=== PATIENT | female | born 1960 | race Caucasian/White ===

== ENCOUNTER 2017-01-16 02:51 | Observation (INO) | payer OTHER ==
[~2017-01-16] VITALS: Ht 160 cm; Wt 52.3 kg
[~2017-01-16 02:51] MED LIST: ADVIN25/60 INH; ALBUAER2 INH; AMIT10TA6 PO; ASPEC81 PO; ATV5X PO; BCTROWC EXT; BISA-16 PO; CHOL100010 PO; CLR10 PO; DIVA500T59 PO; DSY/150 PO; FLNIN/ NAE; MULT-513 PO; NTRGSL/4 UT; PANT40TA2 PO; PROM25TA9 PO; RANI300T2 PO; RTL20 PO; ULT50X PO; VALA500T60 PO; VENL75CA73 PO
[2017-01-16 02:58] VITALS: Ht 160 cm; Wt 52.3 kg
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
[2017-01-16] MEDS ORDERED: PRENTAB26 PO (04:50)
[2017-01-16] MEDS ORDERED: VNTHFA/IN INH (04:50)
[2017-01-16 04:57] LABS: HEMATOCRIT 40.6 % (37-47); MEAN CELL VOLUME 92.3 fL (80-100); MEAN CORPUSCULAR HGB CONC 35.7 g/dl (32-36); MEAN PLATELET VOLUME 9.7 fL (7.4-10.4); PLATELET COUNT 289 K/uL (130-400); WHITE BLOOD COUNT 11.91 K/uL (4.8-10.8)
[2017-01-16 05:12] LABS: BUN/CREATININE RATIO 17.1 (10-20); CALCIUM 9.3 mg/dl (8.5-10.1); CREATININE 0.81 mg/dl (0.60-1.20); POTASSIUM 3.3 mmol/L (3.5-5.1)
[2017-01-16 05:22] LABS: THYROID STIMULATING HORMONE 1.32 uIu/ml (0.300-4.500)
[2017-01-16 06:22] LABS: BENZODIAZEPINE, URINE NEG (NEG); COCAINE,URINE NEG (NEG); PHENCYCLIDINE, URINE NEG (NEG)
--- NOTE | 2017-01-16 06:56 | DIAGNOSTIC IMAGING REPORT ---
HEAD CT NONCONTRAST CT DOSE: 537.48 mGy.cm HISTORY: Altered mental status. TECHNIQUE: Multiaxial CT images of the head were performed without the use of intravenous contrast. Automated exposure control was utilized for this study. Comparison: Brain MRI 07/30/2016. Head CT 07/30/2016. Findings: The paranasal sinuses and mastoid air cells are clear. The calvarium and skull base are intact. The ventricles and sulci are within normal limits. There is no mass, hematoma, midline shift, or acute infarct. Right frontotemporal encephalomalacia, unchanged Impression: No significant change compared to the prior study. No acute intracranial abnormality. Electronically signed by: Max Yen M.D. 01/16/2017 6:53 AM Dictated Date/Time: 01/16/2017 6:51 AM
[2017-01-16] MEDS ORDERED: ACETAMINOPHEN 325 MG TAB PO PRN (08:00)
[2017-01-16] MEDS ORDERED: ONDANSETRON INJ 2 MG/ML 2 ML VIAL IV PRN (08:00)
[2017-01-16] MEDS ORDERED: CHOL1CAP85 PO (08:09)
[2017-01-16] MEDS ORDERED: VENL1CAP92 PO (08:09)
[2017-01-16] MEDS ORDERED: ALBUTEROL HFA 8 GM INHALER INH PRN (08:15)
[2017-01-16] MEDS ORDERED: IV FLUIDS COMPLETED PRN (08:15)
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
[2017-01-16] MEDS ORDERED: VENLAFAXINE HCL XR 37.5 MG CAPXR PO SCH (08:54)
[2017-01-16] MEDS ORDERED: PANTOprazole SOD 40 MG TAB PO SCH (08:54)
[2017-01-16] MEDS ORDERED: FLUTICASONE PROPIONATE NA SPR 16 GM BTL NAE SCH (08:54)
[2017-01-16] MEDS ORDERED: ASPIRIN 81 MG ECTAB PO SCH (08:54)
[2017-01-16] MEDS ORDERED: DIVALPROEX SODIUM 500 MG DELAY RELEASE TAB PO SCH (08:54)
[2017-01-16] MEDS ORDERED: NICOTINE 14 MG/24 HR TDSY TD SCH (08:54)
[2017-01-16 09:13] VITALS: BP 106/64; PULSE 89; TEMP 36.4; O2SAT 93
[2017-01-16 10:10] LABS: PROTHROMBIN TIME (PATIENT) 10.8 SECONDS (9.0-12.0)
[2017-01-16] MEDS ORDERED: ENOXAPARIN 40 MG/0.4 ML SYR SQ SCH (14:00)
[2017-01-16 15:17] VITALS: BP 113/79; PULSE 84; TEMP 36.6; O2SAT 96
--- NOTE | 2017-01-16 16:37 | Discharge Instructions ---
Discharge Instructions Date of Service Jan 16, 2017. Admission Reason for Admission: Altered Mental Status Discharge Discharge Diagnosis / Problem: Altered mental status Discharge Goals Goal(s): Learn about illness Activity Recommendations Activity Limitations: resume your previous activity . Instructions / Follow-Up Instructions / Follow-Up You will be contacted regarding a follow up appointment with Family Medicine Dr. Zelaya. Current Hospital Diet Patient's current hospital diet: Regular Diet Discharge Diet Recommended Diet: Regular Diet Pending Studies Studies pending at discharge: no Medical Emergencies . Who to Call and When: Medical Emergencies: If at any time you feel your situation is an emergency, please call 911 immediately. . Non-Emergent Contact Non-Emergency issues call your: Primary Care Provider . . "Provider Documentation" section prepared by Tessie Quinonez. . VTE Core Measure Inpt VTE Proph given/why not?: Enoxaparin (Lovenox)SQ
[2017-01-16 16:47] VITALS: BP 113/79; PULSE 84; TEMP 36.6; O2SAT 96
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
[2017-01-16] MEDS ORDERED: RANITIDINE HCL 150 MG TAB PO SCH (21:00)
[2017-01-16] MEDS ORDERED: AMITRIPTYLINE HCL 10 MG TAB PO SCH (21:00)
[2017-01-16] MEDS ORDERED: TRAZODONE HCL 100 MG TAB PO SCH (22:00)
== END 2017-01-16 17:15 | disposition home or self-care (01) ==
LOC: ENRESERVDT → ENRESERVTM → EDBD 02:51 → C.EDA 02:53 → C.4E 08:01
PROVIDERS: ADMIT Internal Medicine; ATTEND Internal Medicine
DX: R41.82 Altered mental status, unspecified (principal); J45.909 Unspecified asthma, uncomplicated; F43.10 Post-traumatic stress disorder, unspecified; F41.9 Anxiety disorder, unspecified; F31.9 Bipolar disorder, unspecified; K21.9 Gastro-esophageal reflux disease without esophagitis; G35 Multiple sclerosis; F17.200 Nicotine dependence, unspecified, uncomplicated; M19.90 Unspecified osteoarthritis, unspecified site; F41.0 Panic disorder [episodic paroxysmal anxiety]; Z79.82 Long term (current) use of aspirin; Z87.828 Personal history of other (healed) physical injury and trauma; Z79.899 Other long term (current) drug therapy

== ENCOUNTER 2023-11-22 11:08 | Inpatient (IN) ==
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
[2023-11-22] MEDS: SODIUM CHLORIDE 0.9% 1,000 ML IV ONE (11:44)
[2023-11-22 11:49] LABS: iSTAT Creatinine 0.7 mg/dl (0.6-1.3); iSTAT Hemoglobin 12.6 g/dl (12.0-16.0); iSTAT Ionized Calcium 1.12 mmol/l (1.12-1.32); iSTAT Potassium 3.5 mmol/L (3.3-5.0)
--- NOTE | 2023-11-22 11:51 | XRay Report ---
XR chest 1V portable CLINICAL HISTORY: stroke alert TECHNIQUE: Single frontal radiograph of the chest was obtained. Comparison: Comparison is made to chest radiograph 09/21/2018 FINDINGS: No lines and tubes are seen. Calcified aortic knob is seen. The lungs are clear. No evidence of pleur al effusion or pneumothorax. IMPRESSION: No acute chest disease. ACT 112: Negative or not required by law. Electronically signed by: David King M.D. 11/22/2023 11:50 AM
[2023-11-22] MEDS: OPTIRAY 320 125ml IV ONE (11:52)
[2023-11-22 11:54] LABS: Hematocrit (blood only) 35.5 % (37.0-47.0); Hemoglobin 12.2 g/dl (12.0-16.0); Mean Corpuscular Hemoglobin 30.6 pg (25.0-34.0); Mean Corpuscular Hgb Conc 34.4 g/dL (32.0-36.0); Mean Platelet Volume 9.6 fL (9.4-12.4); Platelet Count 327 K/uL (130-400); RDW Coefficient of Variation 13.6 % (11.5-14.5); RDW Standard Deviation 44.3 fL (36.4-46.3); Red Blood Count 3.99 M/uL (4.20-5.40); White Blood Count 5.87 K/ul (4.8-10.8)
[2023-11-22 12:17] LABS: Alanine Aminotransferase 10 U/L (7-52); Albumin Globulin Ratio 1.3 (0.9-2); Albumin Level 4.5 gm/dl (3.4-5.0); Alkaline Phosphatase 96 U/L (34-104); Anion Gap 12 (3-11); Aspartate Aminotransferase 18 U/L (13-39); BUN Creatinine Ratio 28.2 (10-20); Bilirubin,Total 0.6 mg/dl (0.2-1.0); Blood Urea Nitrogen 20 mg/dl (6-23); Calcium 9.2 mg/dl (8.6-10.3); Carbon Dioxide 26 mmol/L (21-32); Chloride 96 mmol/L (98-107); Est GFR (African American) 105.8 ml/min; Est GFR (Non-African American) 91.3 ml/min; Globulin 3.4 gm/dl (2.5-4.0); Glucose 110 mg/dl (70-99(Fasting)); Potassium 3.5 mmol/L (3.5-5.1); Sodium 134 mmol/L (136-145); Total Protein 7.9 gm/dl (6.0-8.3)
--- NOTE | 2023-11-22 12:20 | CT Scan Report ---
UNENHANCED CT OF THE BRAIN; CT ANGIOGRAM OF THE BRAIN; CT ANGIOGRAM OF THE NECK CLINICAL HISTORY: Change in mental status. Neurological deficit. Stroke like symptoms. COMPARISON STUDY: CT of the brain dated 09/21/2018. TECHNIQUE: Unenhanced axial CT scan of the brain is performed. Subsequently, following the IV adminis tration of 112 of [employer] [address], CT angiogram of the head and neck was performed from the aortic arch t o the vertex. Images are reviewed in the axial, sagittal, and coronal planes. 3-D MIPS images are cre ated and assessed. IV contrast was administered without complication. All measurements were calculate d based on NASCET criteria. A dose lowering technique was utilized adhering to the principles of ALA RA. CT DOSE: 1056.27 mGy.cm FINDINGS: Brain parenchyma: There is age-related involutional change noting mild subcortical and periventricula r microangiopathic disease. Foci of right frontal and temporal encephalomalacia are unchanged and con sistent with remote insult. There is no hemorrhage, mass effect, or evidence of acute territorial isc hemia by CT criteria. There is no evidence of enhancing mass lesion on the angiogram phase images. Th e ventricles, sulci, and cisterns are prominent secondary to involutional change. Griffith-white matter d ifferentiation is preserved. No extra-axial fluid collection is seen. Thoracic aorta: There is atherosclerotic calcification of the thoracic aorta. Visualized portions of the thoracic aorta are normal in caliber. The aortic arch demonstrates standard 3-vessel anatomy. Right carotid arterial system: The right common carotid artery is widely patent, as are the right int ernal and external carotid arteries. Minimal plaque is noted in the carotid bulb. Left carotid arterial system: The left common carotid artery is widely patent, as are the left athletic training internship al and external carotid arteries. Mild calcified plaque is seen in the carotid bulb. Vertebral arteries: The vertebral arteries are widely patent bilaterally and codominant. Subclavian arteries: Widely patent bilaterally. Intracranial vasculature: There is moderate atherosclerotic calcification of the cavernous carotid ar teries. The internal carotid arteries are patent at the skull base, as are the anterior and middle ce rebral arteries bilaterally. The vertebrobasilar system and posterior cerebral arteries are widely pa tent. The vertebral arteries are codominant. There is origin of the right posterior cerebral ar josesito. A posterior communicating artery seen on the left. There is no aneurysm, high-grade stenosis, o r focal vessel cut off seen throughout the intracranial circulation. Jugular veins: Patent bilaterally. Dural sinuses: Patent. Lung apices: Emphysematous change is noted. The imaged upper lobe lung parenchyma is otherwise clear. Soft tissues: The visualized pharyngeal soft tissues are normal in appearance noting angiographic pha se technique. The oropharyngeal airway appears widely patent. The salivary and thyroid glands are nor mal in appearance. No cervical lymphadenopathy is seen. There is a tiny metallic foreign body seen in the right temporal scalp on axial image #[address] Skeletal structures: The skeletal structures are osteopenic. The calvarium appears intact. The cervic al spine is maintained noting multilevel spondylosis. There is a chronic-appearing compression deform ity of T4. Orbits: The bony orbits are intact. Orbital contents are normal as visualized. Sinuses and mastoids: The paranasal sinuses are clear. The mastoid air cells are well pneumatized. IMPRESSION: 1. Chronic findings as above with no hemorrhage, mass effect, or evidence of acute territorial ischem ia by CT criteria. 2. Unremarkable CT angiogram of the brain. 3. Unremarkable CT angiogram of the neck. 4. Emphysema. 5. A tiny metallic foreign body is seen within the right temporal scalp. ACT 112: Negative or not required by law. Electronically signed by: Dragan Simeon M.D. 11/22/2023 12:17 PM
[2023-11-22 12:21] LABS: INR 0.9 (0.9-1.1); Partial Thromboplastin Time 29 Seconds (21-31); Prothrombin Time 10.3 Seconds (9.0-12.0)
[2023-11-22] MEDS ORDERED: MAGNESIUM HYDROXIDE SUSP 30 ML UDC PO PRN (13:11)
[2023-11-22] MEDS ORDERED: POLYETHYLENE (MIRALAX) 17 GM PACK PO PRN (13:11)
[2023-11-22] MEDS ORDERED: ONDANSETRON INJ 2 MG/ML 2 ML VIAL IV PRN (13:11)
[2023-11-22] MEDS ORDERED: ALUMINUM/MAGNESIUM SUSP 30 ML UDC PO PRN (13:11)
--- NOTE | 2023-11-22 13:16 | History & Physical Report ---
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 MS[facility]/cognative impairment, prior JERILYN admitted due to concerns of speech stuttering. Patient with convoluted history, hard to redirect--suspicious for hypomanic epidsode given pressured speech, interrupting and tangential thoughts. Denies paranoia, SI/HI, or hallucinations. Reports 3 days of stuttering. ?history of dysphagia. Exam unremarkable with CN II-XII intact, strength 5/5 in BLE/BUE. Anxious, fast speaking. Given history of MS, will order MRI for new speech concerns and reported "TIA like symptoms." Multiple indications for daily ASA. Consult Neuro for further recommendations. Consult psych for medication optimization and eval I have reviewed the advanced practitioner's documentation, and I agree with, and take responsibility for the plan of care I spent a total of 25 minutes coordinating, documenting, and providing care for this patient excluding time spent in the performance of separately billed services. All of the aforementioned completed outside of collaborating with above advanced practitioner for a full treatment plan.
--- NOTE | 2023-11-22 14:00 | Electrocardiogram Report ---
Test Reason : Blood Pressure : / mmHG Vent. Rate : 074 BPM Atrial Rate : 074 BPM P-R Int : 138 ms QRS Dur : 074 ms QT Int : 412 ms P-R-T Axes : 073 015 021 degrees QTc Int : 457 ms Normal sinus rhythm Normal ECG When compared with ECG of 21-SEP-2018 13:48, No significant change was found Confirmed by Te Diego ([id number]) on 11/22/2023 2:00:09 PM Referred By: REFERRED SELF Confirmed By:Te Diego
[2023-11-22 18:32] LABS: Appearance Urine Clear (Clear); Bilirubin Urine Negative (Negative); Blood Urine Negative (Negative); Color Urine Yellow; Glucose Urine UA Negative (Negative); Ketones Urine 3+ (Negative); Leukocyte Esterase Urine Negative (Negative); Nitrite Urine Negative (Negative); Protein Urine Negative (Negative); Specific Gravity Urine > 1.045 (1.000-1.030); Urobilinogen Urine Negative (Negative)
[2023-11-22 19:00] LABS: Amphetamines+Metham, Urine Neg (Neg); Barbiturates, Urine Neg (Neg); Benzodiazepine, Urine Neg (Neg); Cocaine, Urine Neg (Neg); MDMA (Ecstacy), Urine Neg (Neg); Methadone, Urine Neg (Neg); Opiate, Urine Neg (Neg); Phencyclidine, Urine Neg (Neg)
[2023-11-22] MEDS: LORazepam 0.5 MG in SYRINGE 0.25 ML IV STA (19:13)
[2023-11-22 20:05] LABS: Marijuana, Urine Neg (Neg)
[2023-11-22] MEDS: GADOBUTROL 65ML VIAL IV ONE (20:10)
[2023-11-22] MEDS: ASPIRIN 81 MG ECTAB PO SCH (20:27)
[2023-11-22] MEDS: DIVALPROEX DELAY RELEASE 250 MG TABEC PO SCH (20:27)
[2023-11-22] MEDS: PANTOprazole 40 MG TAB PO SCH (20:28)
--- OUTSIDE RECORDS SUMMARY | 2023-11-22 21:36 | External Medical Summary | Summary of Care ---
Author Name Unknown Organization [facility] Address [address] [place] [address] Phone [phone] Care Team Providers Care Deputy Sheriff Civil Division Name Role Phone Tatiana Damon DO Primary Care Provider [phone] Reason for Visit * Reason Onset Date Comments Health Maintenance 10/04/2023 Encounter Details Date Type Department Care Team (Late st Contact Info) Description 10/04/2023 Telephone [facility] [address] [place] [address] Tatiana Damon DO [address] [place] [address] Health Maintenance Allergies Active Allergy Reactions Criticality Noted Date Comments Etodolac 11/07/2019 Hydroxyzine Other (Please comment) 10/31/2016 Tongue swelling Pregabalin Chills/rigors 03/16/2016 "almost " Morphine Rash 03/16/2016 Propoxyphene Rash 09/25/2001 darvocet Hydrocodone-Acetaminophe n Rash 03/16/2016 documented as of this encounter (statuses as of 10/04/2023) Medications Medication Sig Dispensed Refills Start Date End Date Status Nebulizers (NEBULIZER COMPRESSOR) MISCIndications:Moderat e persistent asthma without complication Inhale via nebulizer. Use as directed. 1 Each 1 10/02/2018 Active Montelukast Sodium 10 MG Oral Tablet (Singulair) Take 1 Tablet by mouth in the morning. 90 Tablet 3 01/11/2023 Active Albuterol Sulfate HFA 108 (90 Base) MCG/ACT Inhalation Aerosol SolutionIndications:Mod erate persistent asthma without complication USE 2 PUFFS EVERY 4 HOURS NEEDED FOR WHEEZING. 54 g 1 01/11/2023 Active Vitamin D (Ergocalciferol) 1.25 MG (63341 UT) Oral Capsule (Drisdol)Indications:Vi tamin D deficiency Take 1 Capsule by mouth once a week. 4 Capsule 10 01/11/2023 Active Nebulizer/Tubing/Mouthp iece KitIndications:Moderate persistent asthma without complication Use to nebulize medication twice daily 1 Kit 1 01/25/2023 Active Nitroglycerin 0.4 MG Sublingual Tablet Sublingual (Nitrostat) Place 1 Tablet under the tongue every 5 minutes as needed for Pain, Chest. 0 Active Promethazine-DM 6.25-15 MG/5ML Oral SyrupIndications:Acute cough Take 5 mL by mouth 4 times a day as needed for Cough. 120 mL 1 04/04/2023 Active valACYclovir HCl 500 MG Oral Tablet (Valtrex)Indications:He rpes gingivostomatitis TAKE 1 TABLET BY MOUTH EVERY DAY IN THE MORNING 18 Tablet 1 04/30/2023 Active Divalproex Sodium 250 MG Oral Tablet Delayed Release (Depakote DR) TAKE 1 TABLET BY MOUTH EVERY MORNING AND 1 TABLET BEFORE BEDTIME 60 Tablet 5 05/12/2023 Active Halobetasol Propionate 0.05 % External Ointment (Ultravate)Indications: Pustular psoriasis Apply topically to affected area 2 times a day. Apply to affected fingers 50 g 1 09/22/2023 Active Ondansetron HCl 4 MG Oral Tablet (Zofran) TAKE 1 TABLET BY MOUTH EVERY 8 HOURS NEEDED NAUSEA 30 Tablet 0 09/28/2023 Active Hospital, Clinic, or Other Facility Administered Medication Ordered Dose Route Frequency Start Date End Date Status albuterol sulfate (PROVENTIL) (2.5 MG/3ML) 0.083% inhalation solution 2.5 mgIndications:Moderate persistent asthma without complication 2.5 mg NEBULIZER Q4H PRN 05/31/2017 Active documented as of this encounter (statuses as of 10/04/2023) Active Problems Problem Noted Date Diagnosed Date Food insecurity 05/04/2021 Overview: Per [facility] Protocol Multiple sclerosis 08/24/2019 History of CHF (congestive heart failure) 2017 Tobacco use disorder 09/28/2017 Chronic rhinitis 05/18/2017 History of head injury 02/07/2017 PTSD (post-traumatic stress disorder) 11/22/2016 Vitamin D deficiency 10/08/2016 Moderate persistent asthma without complication 10/07/2016 Mood disorder 08/09/2016 Dyslipidemia, goal LDL below 70 08/09/2016 Gastroesophageal reflux disease without esophagi tis 03/16/2016 documented as of this encounter (statuses as of 10/04/2023) Resolved Problems Problem Noted Date Diagnosed Date Resolved Date Chest injury 03/15/2017 03/16/2017 Nausea and vomiting 03/15/2017 03/16/20 17 Nausea 02/18/2017 03/16/2017 Numbness and tingling 08/09/20162016 Acute chest pain 08/09/2016 03/16/2017 Chronic suppurative otitis media of right ear 05/11/20 16 03/16/2017 Perforation of right tympanic membrane 05/11/2016 03/16/2017 Herpes gingivostomatitis 03/16/2016 Chronic pain syndrome 03/16/20162016 ASCVD (arteriosclerotic card iovascular disease) 03/16/2016 02/07/2017 Head trauma 11/08/2014 02/07/2017 Dyslipidemia, goal LDL below 70 09/15/2009 05/27/2010 Overview: Per Lipid Taxonomy. Angina pectoris 01/10/2009 05/27/2010 Asthma with severity to be determined 01/10/2009 03/16/2016 Overview: ICD-10 update of inactive term GERD 01/10/2009 03/16/2016 OTHER 01/10/2009 03/16/2016 Other specific muscle disorders 01/10/2009 03/16/2016 ANXIETY STATE NOS 01/10/2009 03/16/2016 Major depressive disorder 01/10/2009 Overview: ICD-10 update of inactive term Panic disorder 01/10/2009 03/16/2016 Local superficial swelling 01/10/2009 0 03/16/2016 Migraine 01/10/2009 03/16/2016 Neuralgia and neuritis 01/10/200902/07 Backache 01/10/2009 02/07/2017 Anemia 01/10/2009 03/16/2016 Allergic rhinitis 01/10/2009 03/16/2016 Allergic rhinitis due to ani mal hair and dander 01/10/2009 03/16/2016 Angina pectoris 01/10/2009 02/07/2017 Allergic rhinitis 01/10/2009 03/16/2017 Abdominal pain 01/30/2008 03/16/2016 Premature menopause 01/30/2008 03/16/20 16 Migraine without aura 11/02/20062009 PERCUTANEOUS TRANSLUMINAL CO RONARY ANGIOPLASTY STATUS 11/02/2006 06/30/2007 Tobacco use disorder 03/08/2006 016 EXTRINSIC ASTHMA, UNSPEC 03/08/200612/2008 GENERAL OSTEOARTHROSIS 03/08/200603/16 CHR INF OTIT EXTERNA NEC 03/08/2006 Mixed dyslipidemia 03/08/2006 9 Overview: Per Lipid Taxonomy. Other chest pain 03/08/2006 03/16/2016 Asthma, mild intermittent documented as of this encounter (statuses as of 10/04/2023) Immunizations Name Administration Dates Next Due Pneumococcal Conjugate Vacc, 13 Valent (Prevnar) 03/30/2018 Pneumococcal Polysaccharide PPV23 (Pneumovax) 01/10/2007 Seasonal Influenza, PF, 6 M & above, IM , (FluLaval or Fluzone) 10/27/2021 Seasonal Influenza, Quadriva lent, No Preserve, IM 06/28/2019 06/28/2020 Seasonal Influenza, Split, I IV3, With Preserve, Inj 07/30/2016,07/30/2010,06/27/2009,06/27,08/28/2007 TD - Tetanus/Diptheria (ADULT) 09/10/2001 TDAP (age 10 and older)(Boostrix) 02/09/2019 Zoster Vaccine Recombinant (Shingrix) 10/27/2021 ,11/07/2019 documented as of this encounter Social History Tobacco Use Types Packs/Day Years Used Date Smoking Tobacco: Every Day Cigarettes 0.5 32 Smokeless Tobacco: Never Comments:began at age 23 Alcohol Use Standard Drinks/Week Comments No 0 (1 standard drink = 0.6 oz pur e alcohol) none PHQ-2 Answer Date Recorded PHQ-2 Score 0 11/07/2019 Sex and Gender Information Value Date Recorded Sex Assigned at Female 02/09/2019 11:52 AM EDT Gender Identity Female 02/09/2019 11:52 AM EDT Sexual Orientation Straight 02/09/2019 11 :52 AM EDT Job Start Date Occupation Industry Not on file Not on file Not on file documented as of this encounter Miscellaneous Notes * Telephone Encounter - Kathy Cooper LPN - 10/04/2023 11:45 AM EST Care Gaps Comprehensive Care Outreach Last Office/Telemedicine Visit: 09/22/2023 (in office), 04/21/2022 (telemedicine) Next Office Visit: Visit date not found Hemoglobin AIC Results: Lab Results Component Value Date/Time HEMOGLOBIN A1C - [facility] 5.2 10/07/2016 03:29 PM HEMOGLOBIN A1C - [facility] 6.1 (H) 05/02/2009 01:06 PM Reviewed Health Maintenance below: Health Maintenance Topic Date Due COVID-19 Vaccine (1) Never done Colorectal Cancer Screening Never done *SPIROMETRY ONCE FOR ASTHMA-ADULT Never done DISCUSS TOBACCO CESSATION (REFER TO SMARTSET #3291) 03/16/2017 Mammogram 03/23/2020 Depression Screening 11/07/2020 Influenza Vaccine (FLU shot) (1) 05/27/2023 Ov Colon Pft mamm Care Gap Outreach Action Taken: Unable to reach message not accepting calls documented in this encounter Plan of Treatment Upcoming Encounters Date Type Department Care Team (Late st Contact Info) Description 04/24/2024 3:20 PM EDT [facility] [address] [facility] [place] [address] Faith Lincoln PA-C [address] [place] [address] [place] [id number] Scheduled Procedures Name Priority Associated Diagnoses Date/Ti me ESOPHAGOGASTRODUODENOSCOPY ( EGD), FLEXIBLE, TRANSORAL, DIAGNOSTIC Recall Gastroesophageal reflux disease without esophagitis Health Maintenance Due Date Last Done Comments COVID-19 Vaccine (#1) 02/13/1962 Cologuard 2006 Colonoscopy 2006 Colorectal Cancer Screening 2006 Fecal Occult Blood Test 2006 Sigmoidoscopy 2006 *SPIROMETRY ONCE FOR ASTHMA-ADULT 11/14/2016 DISCUSS TOBACCO CESSATION (REFER TO SMARTSET #6744) 03/16/2017 03/16/2016 (Discussed) Mammogram 03/23/2020 03/23/2019 Depression Screening 11/07/2020 11/07/2019, 03/16/2016 (Discussed) Influenza Vaccine (FLU shot) (#1) 2023 10/27/2021, 06/28/2019, 07/30/2016, Additional history exists Pneumococcal Vaccine: Pediatrics (0 to 5 Years) and At-Risk Patients (6 to 64 Years) (3 - PPSV23 or PCV20) 2026 03/30/2018, 01/10/2007 Lipid Panel 10/27/2026 10/27/2021, 09/26, 03/17/2011, Additional history exists DTaP,Tdap,and Td Vaccines (2 - Td or Tdap) 02/09/2029 02/09/2019, 09/10/2001 Zoster Vaccines Completed 10/27/2021, 11/07/2019 GARDASIL-HPV IMMUNIZATION SERIES Aged Out No longer eligible based on patient's age to complete this topic Hepatitis B Aged Out No longer eligi ble based on patient's age to complete this topic MENINGOCOCCAL (MENACTRA/MENVEO) Aged Out No longer eligible based on patient's age to complete this topic documented as of this encounter Medical Devices Not on filedocumented as of this encounter Care Teams Deputy Sheriff Civil Division Relationship Specialty Start Date End Date Tatiana Damon DO [address] [place] [address] PCP - General Family Medicine 05/17/18 documented as of this encounter
--- OUTSIDE RECORDS SUMMARY | 2023-11-22 21:36 | External Medical Summary | Summary of Care ---
Author Name Unknown Organization [facility] Address [address] [place] [address] Phone [phone] Care Team Providers Care Change Director Name Role Phone Tatiana Damon Primary Care Provider [phone] Reason for Visit * Reason Comments eRx-Medication Refill Encounter Details Date Type Department Care Team (Late st Contact Info) Description 09/27/2023 Refill [facility] [address] [place] [address] Mariola Dash MD [address] [place] [address] Encounter for long-term (current) use of medications* Allergies Active Allergy Reactions Criticality Noted Date Comments Etodolac 11/07/2019 Hydroxyzine Other (Please comment) 10/31/2016 Tongue swelling Pregabalin Chills/rigors 03/16/2016 "almost " Morphine Rash 03/16/2016 Propoxyphene Rash 09/25/2001 darvocet Hydrocodone-Acetaminophe n Rash 03/16/2016 documented as of this encounter (statuses as of 09/28/2023) Medications Medication Sig Dispensed Refills Start Date End Date Status Nebulizers (NEBULIZER COMPRESSOR) MISCIndications:Moder ate persistent asthma without complication Inhale via nebulizer. Use as directed. 1 Each 1 9 Active Montelukast Sodium 10 MG Oral Tablet (Singulair) Take 1 Tablet by mouth in the morning. 90 Tablet 3 3 Active Albuterol Sulfate HFA 108 (90 Base) MCG/ACT Inhalation Aerosol SolutionIndications:M oderate persistent asthma without complication USE 2 PUFFS EVERY 4 HOURS NEEDED FOR WHEEZING. 54 g 1 3 Active Vitamin D (Ergocalciferol) 1.25 MG (48818 UT) Oral Capsule (Drisdol)Indications: Vitamin D deficiency Take 1 Capsule by mouth once a week. 4 Capsule 10 3 Active Nebulizer/Tubing/Mout hpiece KitIndications:Modera te persistent asthma without complication Use to nebulize medication twice daily 1 Kit 1 3 Active Nitroglycerin 0.4 MG Sublingual Tablet Sublingual (Nitrostat) Place 1 Tablet under the tongue every 5 minutes as needed for Pain, Chest. 0 Active Promethazine-DM 6.25-15 MG/5ML Oral SyrupIndications:Acut e cough Take 5 mL by mouth 4 times a day as needed for Cough. 120 mL 1 3 Active valACYclovir HCl 500 MG Oral Tablet (Valtrex)Indications: Herpes gingivostomatitis TAKE 1 TABLET BY MOUTH EVERY DAY IN THE MORNING 18 Tablet 1 3 Active Divalproex Sodium 250 MG Oral Tablet Delayed Release (Depakote DR) TAKE 1 TABLET BY MOUTH EVERY MORNING AND 1 TABLET BEFORE BEDTIME 60 Tablet 5 3 Active Halobetasol Propionate 0.05 % External Ointment (Ultravate)Indication s:Pustular psoriasis Apply topically to affected area 2 times a day. Apply to affected fingers 50 g 1 3 Active Sulfamethoxazole-Trim ethoprim 800-160 MG Oral Tablet (Bactrim DS)Indications:Cellul itis of finger of left hand,Acute nasopharyngitis Take 1 Tablet by mouth in the morning and 1 Tablet before bedtime. Do all this for 10 days. Until gone.. 20 Tablet 0 3 10/02/19 24 Active Ondansetron HCl 4 MG Oral Tablet (Zofran) TAKE 1 TABLET BY MOUTH EVERY 8 HOURS NEEDED NAUSEA 30 Tablet 0 4 Active Ondansetron HCl 4 MG Oral Tablet Take 1 Tablet by mouth every 8 hours as needed for Nausea. 30 Tablet 0 3 09/28/19 24 Discontinued Hospital, Clinic, or Other Facility Administered Medication Ordered Dose Route Frequency Start Date End Date Status albuterol sulfate (PROVENTIL) (2.5 MG/3ML) 0.083% inhalation solution 2.5 mgIndications:Moderate persistent asthma without complication 2.5 mg NEBULIZER Q4H PRN 05/31/2017 Active documented as of this encounter (statuses as of 09/28/2023) Active Problems Problem Noted Date Diagnosed Date Food insecurity 05/04/2021 Overview: Per [facility] Protocol Multiple sclerosis 08/24/2019 History of CHF (congestive heart failure) 2017 Tobacco use disorder 09/28/2017 Chronic rhinitis 05/18/2017 History of head injury 02/07/2017 PTSD (post-traumatic stress disorder) 11/22/2016 Vitamin D deficiency 10/08/2016 Moderate persistent asthma without complication 10/07/2016 Mood disorder 08/09/2016 Dyslipidemia, goal LDL below 70 08/09/2016 Gastroesophageal reflux disease without esophagi tis 03/16/2016 documented as of this encounter (statuses as of 09/28/2023) Resolved Problems Problem Noted Date Diagnosed Date [...] INF OTIT EXTERNA NEC 03/08/2006 Mixed dyslipidemia 03/08/200609/15/ 9 Overview: Per Lipid Taxonomy. Other chest pain 03/08/2006 03/16/2016 Asthma, mild intermittent documented as of this encounter (statuses as of 09/28/2023) Immunizations Name Administration Dates Next Due Pneumococcal [...] encounter Miscellaneous Notes * Telephone Encounter - Miguel Whipple [facility] - 09/28/2023 3:31 PM ESTSigned Prescriptions: Disp Refills Ondansetron HCl 4 MG Oral Tablet (Zofran) 30 Tab*0 Sig: TAKE 1 TABLET BY MOUTH EVERY 8 HOURS NEEDED NAUSEAAuthorizing Provider: Miguelito DASH User: MIGUEL FARIAS documented in this encounter Plan of Treatment Upcoming Encounters Date Type Department Care Team (Late st Contact Info) Description 04/24/2024 3:20 PM EDT Office Visit Dermatology[address] [place] [address] Faith Lincoln PA-C [address] [place] [address] [place] [address] Scheduled Orders Name Type Priority Associated Diagnoses Orde r Schedule MAGNESIUM Lab Routine Encounter for long-term (current) use of medications Expected: 09/28/2023 (Approximate), Expires: 09/28/2024 Scheduled Procedures Name Priority Associated Diagnoses Date/Ti me ESOPHAGOGASTRODUODENOSCOPY ( EGD), FLEXIBLE, TRANSORAL, DIAGNOSTIC Recall Gastroesophageal reflux disease without esophagitis Health Maintenance Due Date Last Done Comments COVID-19 Vaccine (#1) 02/13/1962 Cologuard 2006 Colonoscopy 2006 Colorectal Cancer Screening 2006 Fecal Occult Blood Test 2006 Sigmoidoscopy 2006 *SPIROMETRY ONCE FOR ASTHMA-ADULT 11/14/2016 DISCUSS TOBACCO CESSATION (REFER TO SMARTSET #3291) 03/16/2017 03/16/2016 (Discussed) Mammogram 03/23/2020 03/23/2019 Depression [...] Not on filedocumented as of this encounter Visit Diagnoses Diagnosis Encounter for long-term (current) use of medications- Primary Encounter for long-term (current) use of other medications documented in this encounter Care Teams Change Director Relationship Specialty Start Date End Date Tatiana Damon DO [address] [place] [phone] PCP - General Family Medicine 05/17/18 documented as of this encounter
--- OUTSIDE RECORDS SUMMARY | 2023-11-22 21:36 | External Medical Summary | Summary of Care ---
Author Name Unknown Organization [facility] Address [address] [place] [address] Phone [phone] Care Team Providers Care Property And Casualty Insurance Agent Name Role Phone LarrydestineeTatiana DO Primary Care Provider [phone] Encounter Details Date Type Department Care Team (Late st Contact Info) Description 2023 Population Health External Data Unspecified Department Allergies Active Allergy Reactions Criticality Noted Date Comments Etodolac 11/07/2019 Hydroxyzine Other (Please comment) 10/31/2016 Tongue swelling Pregabalin Chills/rigors 03/16/2016 "almost " Morphine Rash 03/16/2016 Propoxyphene Rash 09/25/2001 darvocet Hydrocodone-Acetaminophe n Rash 03/16/2016 documented as of this encounter (statuses as of 2023) Medications Medication Sig Dispensed Refills Start Date End Date Status Nebulizers (NEBULIZER COMPRESSOR) MISCIndications:Moderat e persistent asthma without complication Inhale via nebulizer. Use as directed. 1 Each 1 10/02/2018 Active Montelukast Sodium 10 MG Oral Tablet (Singulair) Take 1 Tablet by mouth in the morning. 90 Tablet 3 01/11/2023 Active Ondansetron HCl 4 MG Oral Tablet Take 1 Tablet by mouth every 8 hours as needed for Nausea. 30 Tablet 0 01/11/2023 Active Albuterol Sulfate HFA 108 (90 Base) MCG/ACT Inhalation Aerosol SolutionIndications:Mod erate persistent asthma without complication USE 2 PUFFS EVERY 4 HOURS NEEDED FOR WHEEZING. 54 g 1 01/11/2023 Active Vitamin D (Ergocalciferol) 1.25 MG (98356 UT) Oral Capsule (Drisdol)Indications:Vi tamin D deficiency [...] BEFORE BEDTIME 60 Tablet 5 05/12/2023 Active Hospital, Clinic, or Other Facility Administered Medication Ordered Dose Route Frequency Start Date End Date Status albuterol sulfate (PROVENTIL) (2.5 MG/3ML) 0.083% inhalation solution 2.5 mgIndications:Moderate persistent asthma without complication 2.5 mg NEBULIZER Q4H PRN 05/31/2017 Active documented as of this encounter (statuses as of 2023) Active Problems Problem Noted Date Diagnosed Date Food insecurity 05/04/2021 Overview: Per [facility] Protocol Multiple sclerosis 08/24/2019 History of CHF (congestive heart failure) 2017 Tobacco use disorder 09/28/2017 Chronic rhinitis 05/18/2017 History of head injury 02/07/2017 PTSD (post-traumatic stress disorder) 11/22/2016 Vitamin D deficiency 10/08/2016 Moderate persistent asthma without complication 10/07/2016 Mood disorder 08/09/2016 Dyslipidemia, goal LDL below 70 08/09/2016 Gastroesophageal reflux disease without esophagi tis 03/16/2016 documented as of this encounter (statuses as of 2023) Resolved Problems Problem Noted Date Diagnosed Date [...] as of this encounter (statuses as of 2023) Immunizations Name Administration Dates Next Due Pneumococcal Conjugate Vacc, 13 Valent (Prevnar) 03/30/2018 Pneumococcal Polysaccharide PPV23 (Pneumovax) 01/10/2007 SEASONAL INFLUENZA, PF, 6 M & Above, IM , (FLULAVAL or FLUZONE) 10/27/2021 Seasonal Influenza, Quadriva lent, No Preserve, [...] on file documented as of this encounter Plan of Treatment Scheduled Procedures Name Priority Associated Diagnoses Date/Ti [...] filedocumented as of this encounter Care Teams Property And Casualty Insurance Agent Relationship Specialty Start Date End Date Tatiana Damon DO [address] [place] [address] PCP - General Family Medicine 05/17/18 documented as of this encounter
--- OUTSIDE RECORDS SUMMARY | 2023-11-22 21:36 | External Medical Summary | Summary of Care ---
Author Name Unknown Organization [facility] Address [address] [place] [address] Phone [phone] Care Team Providers Care Event Host Name Role Phone Tatiana Damon Primary Care Provider + [phone] Reason for Referral * Evaluate & Treat - Unlimited Visits (Within 30 days (routine)) - Authorized Specialty Diagnoses / Procedures Referred By Ermelinda velazquez Referred To Contact Dermatology Diagnoses Pustular psoriasis Deb Pierce PA-C [address] [place] [address] Referral ID Status Reason Start Date Expiration Date Visits Requested Visits Authorized [id number] Authorized Specialty Services Required 3 [phone] Question Answer Referral Priority Within 30 days (routine) Where should this appointment be scheduled? [facility] Are you referring the patient for Mohs Surgery and have a current positive skin cancer biopsy result? No What is the reason for the patient referral? Rash/Skin Check/Eval of Lesion or Mole Reason for Visit * Reason Comments Acute Pt states that her h ands are really chapped and skin is peeling off / pt said she is also congested and cough Encounter Details Date Type Department Care Team (Latest Contact Info) Description 09/22/2023 2:20 PM EST Office Visit [facility] [address] [place] [facility] [place] [address] Deb Pierce PA-C [address], [place] [id number] Pustular psoriasis*; Other cough; Tobacco use; Cellulitis of finger of left hand; Acute nasopharyngitis Allergies Active Allergy Reactions Criticality Noted Date Comments Etodolac 11/07/2019 Hydroxyzine Other (Please comment) 10/31/2016 Tongue swelling Pregabalin Chills/rigors 03/16/2016 "almost " Morphine Rash 03/16/2016 Propoxyphene Rash 09/25/2001 darvocet Hydrocodone-Acetaminophe n Rash 03/16/2016 documented as of this encounter (statuses as of 09/22/2023) Medications Medication Sig Dispensed Refills Start Date [...] 01/11/2023 Active Vitamin D (Ergocalciferol) 1.25 MG (64556 UT) Oral Capsule (Drisdol)Indications:Vi tamin D deficiency [...] affected fingers 50 g 1 09/22/2023 Active Sulfamethoxazole-Trimet hoprim 800-160 MG Oral Tablet (Bactrim DS)Indications:Cellulit is of finger of left hand,Acute nasopharyngitis Take 1 Tablet by mouth in the morning and 1 Tablet before bedtime. Do all this for 10 days. Until gone.. 20 Tablet 0 09/22/2023 Active Hospital, Clinic, or Other Facility Administered Medication Ordered Dose Route Frequency Start Date End Date Status albuterol sulfate (PROVENTIL) (2.5 MG/3ML) 0.083% inhalation solution 2.5 mgIndications:Moderate persistent asthma without complication 2.5 mg NEBULIZER Q4H PRN 05/31/2017 Acti ve methylPREDNISolone sodium succ (SOLU-Medrol) inj 125 mgIndications:Pustular psoriasis,Other cough,Acute nasopharyngitis 125 mg IM ONCE 09/22/2023 09/22/2023 Ended documented as of this encounter (statuses as of 09/22/2023) Active Problems Problem Noted Date Diagnosed Date Food insecurity 05/04/2021 Overview: Per [facility] Protocol Multiple sclerosis 08/24/2019 History of CHF (congestive heart failure) 2017 Tobacco use disorder 09/28/2017 Chronic rhinitis 05/18/2017 History of head injury 02/07/2017 PTSD (post-traumatic stress disorder) 11/22/2016 Vitamin D deficiency 10/08/2016 Moderate persistent asthma without complication 10/07/2016 Mood disorder 08/09/2016 Dyslipidemia, goal LDL below 70 08/09/2016 Gastroesophageal reflux disease without esophagi tis 03/16/2016 documented as of this encounter (statuses as of 09/22/2023) Resolved Problems Problem Noted Date Diagnosed Date [...] as of this encounter (statuses as of 09/22/2023) Immunizations Name Administration Dates Next Due Pneumococcal [...] Day Cigarettes 0.5 32 Smokeless Tobacco: Never Tobacco Cessation:Ready to Q uit: Not Asked; Counseling Given: Not Answered Comments:began at age 23 Alcohol Use Standard [...] on file documented as of this encounter Last Filed Vital Signs Vital Sign Reading Time Taken Comments Blood Pressure 98/62 09/22/2023 2:07 PM EST Pulse 76 09/22/2023 2:07 PM EST Temperature 35.6 C (96 F) 09/22/2023 2:07 PM EST Respiratory Rate 16 09/22/2023 2:07 PM EST Oxygen Saturation 98% 09/22/2023 2:07 PM EST Inhaled Oxygen Concentration - - Weight 52.2 kg (115 lb) 09/22/2023 2:07 PM EST Height 160 cm (5' 3") 09/22/2023 2:07 PM EST Body Mass Index 20.37 09/22/2023 2:07 PM EST documented in this encounter Progress Notes * Sue Ovalle CCMA - 09/22/2023 2:27 PM EST Pre-Administration Time Out Procedure Performed: Yes Patient Identified (Ask Name/Date of ): Yes Does the patient have a fever greater than 101 degrees today? No Patient allergic to latex? No Has the patient ever fainted after receiving an injection? No VFC Stock: No Injection(s) verified: Yes, Injection Name: SOLU-MEDROL Verified Side and Site: Yes Verified Shot(s) with Parent(s)/Patient: Yes * Deb Pierce PA-C - 09/22/2023 2:10 PM EST Images from the original note were not included. History of Present Illness Jael Jarvis is a 63 year old female that presents for Acute (Pt states that her hands are reallychapped and skin is peeling off / pt said she is also congested and cough/) Here for acute visit She has been cleaning a lot Newman wear gloves Has had issue with her skin on her hands for some time now The skin peels and sloughs off Chapped Also has uri symptoms. She was to walk in clinic 8 months ago Was on 2 abx Then on cough meds Does smoke Cannot get rid of it Does feel sick Grandkids had rsv fairly recently Physical Exam Vitals: 09/22/23 1407 Temp: 35.6 C (96 F) Pulse: 76 Resp: 16 SpO2: 98% BP: 98/62 BMI: 20.38 BP Readings from Last 3 Encounters: 09/22/23 98/62 04/04/23 114/70 01/25/23 120/60 Wt Readings from Last 3 Encounters: 09/22/23 52.2 kg (115 lb) 04/04/23 48.2 kg (106 lb 3.2 oz) 01/25/23 47.7 kg (105 lb 3.2 oz) BMI Readings from Last 3 Encounters: 09/22/23 20.37 kg/m 04/04/23 18.81 kg/m 01/25/23 18.64 kg/m Ht Readings from Last 3 Encounters: 09/22/23 1.6 m (5' 3") 04/04/23 1.6 m (5' 3") 01/07/23 1.6 m (5' 3") General: alert, healthy, and no distress Head: Normocephalic, No masses, lesions, tenderness or abnormalities Eye Exam: PERRLA, extraocular movements intact, conjunctiva are pink and non- injected, sclera clear Ears: External ears normal, Canals clear, TM's Normal Nose: no purulent discharge, mucosal edema, mucosal erythema Oropharynx: no exudate, no erythema, lips, buccal mucosa, and tongue normal, mucous membranes are moist, and post nasal drip Neck: supple, no adenopathy, no bruits, thyroid normal size, non-tender, without nodularity Heart: regular rate & rhythm, no murmur, no gallops, S-1 normal, and S-2 normal Lungs: chest symmetric with normal AP diameter, no chest deformities noted, no chest wall tenderness, lungs clear to auscultation Extremities: less than 2 second capillary refill, no joint deformities, effusion, or inflammation Skin: skin color, texture, turgor are normal, several fingertips with psoriasis and peeling, her L index finger has an infection - no purulent drainage but is erythematous and edematous, localized todi[p around nail bed Assessment and Plan Pustular psoriasis (Primary) - Halobetasol Propionate 0.05 % External Ointment (Ultravate); Apply topically to affected area 2 times a day. Apply to affected fingers - methylPREDNISolone sodium succ (SOLU-Medrol) inj 125 mg - DERMATOLOGY REFERRAL OP Other cough - methylPREDNISolone sodium succ (SOLU-Medrol) inj 125 mg Tobacco use - XR CHEST 2 VIEWS; Future; Expected date: 09/22/2023 Cellulitis of finger of left hand - Sulfamethoxazole-Trimethoprim 800-160 MG Oral Tablet (Bactrim DS); Take 1 Tablet by mouth in the morning and 1 Tablet before bedtime. Do all this for 10 days. Until gone.. Acute nasopharyngitis - methylPREDNISolone sodium succ (SOLU-Medrol) inj 125 mg - Sulfamethoxazole-Trimethoprim 800-160 MG Oral Tablet (Bactrim DS); Take 1 Tablet by mouth in the morning and 1 Tablet before bedtime. Do all this for 10 days. Until gone.. comfort care measures discussed saline nasal spray with bulb syringe plenty of fluids Tylenol per dosing recommendations for low grade fever humidifier Rev Dr Pranav dixon notes from 2015 X 2 Rx same ointment May need ilk from derm Wrap-Up Time: I spent a total of 10-19 minutes (exact time 17 mins) on the date of service in preparation, delivery, and documentation of the care provided to Jael Jarvis excluding any time spent in the performance of separately billed services. Deb Pierce PA-C 09/22/2023 2:20 PM documented in this encounter Nursing Notes * Sue Ovalle CCMA - 09/22/2023 2:07 PM EST Jael Jarvis is a 63 year old female who presents today for Chief Complaint Patient presents with Acute Pt states that her hands are really chapped and skin is peeling off / pt said she is also congestedand cough documented in this encounter Plan of Treatment Upcoming Encounters Date Type Department Care Team (Late st Contact Info) Description 04/24/2024 3:20 PM EDT Office [place] [place] [address] Faith Lincoln PA-C [address] [place] [address] [place] [phone] Scheduled Orders Name Type Priority Associated Diagnoses Orde r Schedule XR CHEST 2 VIEWS Medical Imaging Routine Tobacco use Expected: 09/22/2023, Expires: 10/23/2024 Scheduled Procedures Name Priority Associated Diagnoses Date/Ti me ESOPHAGOGASTRODUODENOSCOPY ( EGD), FLEXIBLE, TRANSORAL, DIAGNOSTIC Recall Gastroesophageal reflux disease without esophagitis Scheduled Referrals Name Type Priority Associated Diagnoses Orde r Schedule DERMATOLOGY REFERRAL OP Referral Within 30 days (routine) Pustular psoriasis Ordered: 09/22/2023 Health Maintenance Due Date Last Done Comments COVID-19 Vaccine (#1) 02/13/1961 Cologuard 2006 Colonoscopy 2006 Colorectal Cancer Screening 2006 Fecal Occult Blood Test 2006 Sigmoidoscopy 2006 *SPIROMETRY ONCE FOR ASTHMA-ADULT 11/14/2016 DISCUSS TOBACCO CESSATION (REFER TO SMARTSET #8810) 03/16/2017 03/16/2016 (Discussed) Mammogram 03/23/2020 03/23/2019 Depression [...] as of this encounter Visit Diagnoses Diagnosis Pustular psoriasis- Primary Other psoriasis Other cough Tobacco use Tobacco use disorder Cellulitis of finger of left hand Cellulitis and abscess of finger, unspecified Acute nasopharyngitis Acute nasopharyngitis (common cold) documented in this encounter Administered Medications Inactive Administered Medications - up to 3 most recent administrations Medication Order MAR Action Action Date Dose Rate Site methylPREDNISolone sodium succ (SOLU-Medrol) inj 125 mg 125 mg, Intramuscular, ONCE, On Alyse 09/22/23 at 1500, For 1 dose Given 09/22/2023 2:26 PM EST 125 mg Dorsogluteal Right documented in this encounter Care Teams Event Host Relationship Specialty Start Date End Date Tatiana Damon DO [address] [place] [address] PCP - General Family Medicine 05/17/18 documented as of this encounter
[2023-11-22] MEDS: ACETAMINOPHEN 325 MG TAB PO PRN (22:30)
[2023-11-23] MEDS ORDERED: HALOPERIDOL LACTATE 5 MG/ML 1 ML VIAL IM PRN (03:09)
[2023-11-23] MEDS: HALOPERIDOL LACTATE 5 MG/ML 1 ML VIAL IM STA ×2 (03:15→03:19)
--- NOTE | 2023-11-23 07:44 | Magnetic Resonance Report ---
MRI OF THE BRAIN WITHOUT AND WITH IV CONTRAST CLINICAL HISTORY: MS/stroke like symptoms. Left-sided headache. Confusion. COMPARISON STUDY: MRI of the brain July 30, 2016. Since head CT and CTA of the head performed ear lier today. TECHNIQUE: Utilizing a 1.5 Tahira magnet and dedicated coil, multiplanar, multiecho imaging of the br ain was performed pre and postcontrast administration. IV administration of 5 mL of Gadavist contras t was uneventful. The study was performed as per the MS protocol. FINDINGS: There are no foci of restricted diffusion to suggest acute infarct. No acute intracranial h emorrhage, midline shift or mass effect is present. Right temporal lobe encephalomalacia is unchanged since MRI of July 30, 2016. Ventricular system is stable. Basal cisterns are patent. There are no extra-axial collections. Mild atrophy is noted. There is no intracranial mass or pathologic enhancem ent. Periventricular T2 hyperintense foci are again noted. Foci adjacent to the atrium of the left la teral ventricle have mildly increased since previous MRI. Otherwise, the appearance of the brain is u nchanged. Vertebral signal is normal. There is no evidence for sinusitis. There is no mastoid fluid. IMPRESSION: 1. No acute intracranial findings. 2. No intracranial mass or pathologic enhancement. 3. Slight progression of periventricular white matter T2 hyperintense foci, as described above, since MRI of July 30, 2016. These remain nonspecific and could represent demyelinating disease or small vessel disease. No evidence for active demyelination. 4. No change in right temporal lobe encephalomalacia. ACT 112: Negative or not required by law. Electronically signed by: Onofre Whiting M.D. 11/23/2023 7:42 AM
[2023-11-23 07:51] LABS: Hematocrit (blood only) 34.3 % (37.0-47.0); Hemoglobin 11.8 g/dl (12.0-16.0); Mean Corpuscular Hemoglobin 30.2 pg (25.0-34.0); Mean Corpuscular Hgb Conc 34.4 g/dL (32.0-36.0); Mean Corpuscular Volume 87.7 fL (80.0-100.0); Mean Platelet Volume 9.6 fL (9.4-12.4); Platelet Count 326 K/uL (130-400); RDW Coefficient of Variation 13.6 % (11.5-14.5); RDW Standard Deviation 43.9 fL (36.4-46.3); Red Blood Count 3.91 M/uL (4.20-5.40); White Blood Count 5.37 K/ul (4.8-10.8)
[2023-11-23 08:11] LABS: Albumin Globulin Ratio 1.6 (0.9-2); Albumin Level 3.9 gm/dl (3.4-5.0); BUN Creatinine Ratio 27.4 (10-20); Bilirubin,Total 0.3 mg/dl (0.2-1.0); Calcium 9.1 mg/dl (8.6-10.3); Chol HDL Ratio 3.7 (0-5); Creatinine Clr Calc Pharmacy 75.7 ml/min; Est GFR (Non-African American) 96.6 ml/min; Globulin 2.5 gm/dl (2.5-4.0); Magnesium 2.1 mg/dl (1.7-2.4); Potassium 4.1 mmol/L (3.5-5.1); Total Protein 6.4 gm/dl (6.0-8.3)
[2023-11-23] MEDS: busPIRone 15 MG TAB PO SCH (09:18)
[2023-11-23] MEDS: FAMOTIDINE 20 MG TAB PO SCH (09:18)
--- OUTSIDE RECORDS SUMMARY | 2023-11-23 10:03 | External Medical Summary | Summary of Care ---
Author Name Unknown Organization [facility] Address [address] [place] [address] Phone [phone] Care Team Providers Care Manager Retail Name Role Phone Tatiana Damon Primary Care Provider [phone] Reason for Referral * Evaluate & Treat - Unlimited Visits (Within 30 days (routine)) - Authorized Specialty Diagnoses / Procedures Referred By Ermelinda velazquez Referred To Contact Neurology Diagnoses Multiple sclerosis (HCC) Fluency disorder associated with underlying disease Deb Pierce PA-C [address] [place] [address] Referral ID Status Reason Start Date Expiration Date Visits Requested Visits Authorized [id number] Authorized Specialty Services Required 11/22/2023 999 999 Question Answer Referral Priority Within 30 days (routine) Where should this appointment be scheduled? [facility] Is this referral being placed for insurance purposes ONLY No, patient needs appointment [facility]Y REFERRAL QUESTIONS Multiple Sclerosis Comments Ms, memory changes * Precert (Within 10 days (routine)) - Pending Review Specialty Diagnoses / Procedures Referred By Ermelinda velazquez Referred To Contact Radiology Diagnoses Multiple sclerosis (HCC) Fluency disorder associated with underlying disease Procedures CT HEAD/BRAIN WO CONTRAST Deb Pierce PA-C [address] [place] [address] Referral ID Status Reason Start Date Expiration Date V isits Requested Visits Authorized [id number] Pending Review 11/22/2023 999 999 Reason for Visit * Reason Comments Medication Problem Pt states that she h as a back pain Encounter Details Date Type Department Care Team (Latest Contact Info) Description 11/22/2023 10:20 AM EST [facility] [address] [facility] [phone] Deb [facility]C [address] [facility] [address] Confusion*; Multiple sclerosis (HCC); Gastroesophageal reflux disease without esophagitis; ASCVD (arteriosclerotic cardiovascular disease); Moderate persistent asthma without complication; PTSD (post-traumatic stress disorder); Fluency disorder associated with underlying disease Allergies Active Allergy Reactions Criticality Noted Date Comments Etodolac 11/07/2019 Hydroxyzine Other (Please comment) 10/31/2016 Tongue swelling Pregabalin Chills/rigors 03/16/2016 "almost " Morphine Rash 03/16/2016 Propoxyphene Rash 09/25/2001 darvocet Hydrocodone-Acetaminophe n Rash 03/16/2016 documented as of this encounter (statuses as of 11/22/2023) Medications Medication Sig Dispensed Refills Start Date [...] 01/11/2023 Active Vitamin D (Ergocalciferol) 1.25 MG (27874 UT) Oral Capsule (Drisdol)Indications:Vi tamin D deficiency [...] BEFORE BEDTIME 60 Tablet 5 05/12/2023 Active Ondansetron HCl 4 MG Oral Tablet (Zofran) TAKE 1 TABLET BY MOUTH EVERY 8 HOURS NEEDED NAUSEA 30 Tablet 0 09/28/2023 Active Clobetasol Propionate 0.05 % External Cream (Temovate) Apply topically to affected area 2 times a day. To affected area for up to two weeks. 30 g 1 10/04/2023 Active Hospital, Clinic, or Other Facility Administered Medication Ordered Dose Route Frequency Start Date End Date Status albuterol sulfate (PROVENTIL) (2.5 MG/3ML) 0.083% inhalation solution 2.5 mgIndications:Moderate persistent asthma without complication 2.5 mg NEBULIZER Q4H PRN 05/31/2017 Active documented as of this encounter (statuses as of 11/22/2023) Active Problems Problem Noted Date Diagnosed Date Food insecurity 05/04/2021 Overview: Per [facility] Protocol Multiple sclerosis 08/24/2019 History of CHF (congestive heart failure) 2017 Tobacco use disorder 09/28/2017 Chronic rhinitis 05/18/2017 History of head injury 02/07/2017 PTSD (post-traumatic stress disorder) 11/22/2016 Vitamin D deficiency 10/08/2016 Moderate persistent asthma without complication 10/07/2016 Mood disorder 08/09/2016 Dyslipidemia, goal LDL below 70 08/09/2016 Gastroesophageal reflux disease without esophagi tis 03/16/2016 documented as of this encounter (statuses as of 11/22/2023) Resolved Problems Problem Noted Date Diagnosed Date [...] as of this encounter (statuses as of 11/22/2023) Immunizations Name Administration Dates Next Due Pneumococcal [...] Sign Reading Time Taken Comments Blood Pressure 112/86 11/22/2023 10:03 AM EST Pulse 75 11/22/2023 10:03 AM EST Temperature 36.5 C (97.7 F) 11/22/2023 10:[address] Respiratory Rate 16 11/22/2023 10:03 AM EST Oxygen Saturation 96% 11/22/2023 10:03 AM EST Inhaled Oxygen Concentration - - Weight 50.9 kg (112 lb 3.2 oz) 11/22/2023 10:03 AM EST Height 160 cm (5' 3") 11/22/2023 10:03 AM EST Body Mass Index 19.88 11/22/2023 10:03 AM EST documented in this encounter Progress Notes * Deb Pierce PA-C - 11/22/2023 10:03 AM EST Images from the original note were not included. History of Present Illness Jael Jarvis is a 63 year old female that presents for Medication Problem (Pt states that she hasa back pain ) Here as she has back pain but she has some major confusion She reports that her speech is off - she can talk but then all of a sudden she cannot Light headed one minute and feels dizzy Nursing reported confusion Physical Exam Vitals: 11/22/23 1003 Temp: 36.5 C (97.7 F) Pulse: 75 Resp: 16 SpO2: 96% BP: 112/86 BMI: 19.88 BP Readings from Last 3 Encounters: 11/22/23 112/86 09/22/23 98/62 04/04/23 114/70 Wt Readings from Last 3 Encounters: 11/22/23 50.9 kg (112 lb 3.2 oz) 09/22/23 52.2 kg (115 lb) 04/04/23 48.2 kg (106 lb 3.2 oz) BMI Readings from Last 3 Encounters: 11/22/23 19.88 kg/m 09/22/23 20.37 kg/m 04/04/23 18.81 kg/m Ht Readings from Last 3 Encounters: 11/22/23 1.6 m (5' 3") 09/22/23 1.6 m (5' 3") 04/04/23 1.6 m (5' 3") General: alert, healthy, and slurred speech Head: Normocephalic, No masses, lesions, tenderness or abnormalities Extremities: less than 2 second capillary refill, no joint deformities, effusion, or inflammation Skin: skin color, texture, turgor are normal, no rashes or significant lesions Assessment and Plan Confusion (Primary) - CBC WITH WBC DIFFERENTIAL; Future; Expected date: 11/22/2023 - COMPREHENSIVE METABOLIC PANEL; Future; Expected date: 11/22/2023 - MAGNESIUM; Future; Expected date: 11/22/2023 - VITAMIN B12; Future; Expected date: 11/22/2023 - 25-HYDROXY VITAMIN D; Future; Expected date: 11/22/2023 - TSH WITH FREE T4 IF INDICATED; Future; Expected date: 11/22/2023 - VALPROIC ACID LEVEL; Future; Expected date: 11/22/2023 - URINALYSIS, REFLEX TO CULTURE (NOT FOR NEUTROPENIC PATIENTS); Future; Expected date: 11/22/2023 - VASC DUPLEX CAROTID BILAT; Future; Expected date: 11/22/2023 Multiple sclerosis (HCC) - CT HEAD/BRAIN WO CONTRAST; Future; Expected date: 11/22/2023 - NEUROLOGY REFERRAL OP Gastroesophageal reflux disease without esophagitis - MAGNESIUM; Future; Expected date: 11/22/2023 - VITAMIN B12; Future; Expected date: 11/22/2023 - 25-HYDROXY VITAMIN D; Future; Expected date: 11/22/2023 ASCVD (arteriosclerotic cardiovascular disease) - VASC DUPLEX CAROTID BILAT; Future; Expected date: 11/22/2023 Moderate persistent asthma without complication - noted, no visible respiratory distress PTSD (post-traumatic stress disorder) - tbi Fluency disorder associated with underlying disease - CT HEAD/BRAIN WO CONTRAST; Future; Expected date: 11/22/2023 - NEUROLOGY REFERRAL OP - RPR; Future; Expected date: 11/22/2023 Follow Up: Return for discuss pain medicaiton = needs to see pcp. | For: discuss pain medicaiton = needs to see pcp Nursing reports an episode of aphasia as well as significant confusion. Wrap-Up Patient left appt to go to the ER at [facility] She had a ride from a friend so she had a historian in case her aphasia kicked in again Needs neuro appt. Imaging, lab work as above at the minimum She refused to be transported via ambulance Time: I spent a total of 20-29 minutes (exact time 22 mins) on the date of service in preparation, delivery, and documentation of the care provided to Jael Jarvis excluding any time spent in the performance of separately billed services. Deb Pierce PA-C 11/22/2023 10:40 AM documented in this encounter Nursing Notes * Sue Ovalle CCMA - 11/22/2023 10:02 AM EST Jael Jarvis is a 63 year old female who presents today for Chief Complaint Patient presents with Medication Problem Pt states that she has a back pain Pt was taken to the bathroom to provide a urine, she was sitting on the toilet with pants on, and she was not sure what to do, she was confused and disoriented and she was advise 2x she needed to provide a urine, wait for pt. Came back in to check on her and she was not sure what urine I was talking about, she grab the bathroom spray thinking it was her water bottle to take with her. documented in this encounter Plan of Treatment Upcoming Encounters Date Type Department Care Team (Late st Contact Info) Description 04/24/2024 3:20 PM EDT Office Visit [address] [address] Faith Lincoln PA-C [address] [place] [address] [place] [phone] Scheduled Orders Name Type Priority Associated Diagnoses Orde r Schedule CBC WITH WBC DIFFERENTIAL Lab Routine Confusion Expected: 11/22/2023 (Approximate), Expires: 11/22/2024 COMPREHENSIVE METABOLIC PANEL Lab Routine Confusion Expected: 11/22/2023 (Approximate), Expires: 11/21/2024 MAGNESIUM Lab Routine Gastroesophageal reflux disease without esophagitis Confusion Expected: 11/22/2023 (Approximate), Expires: 11/21/2024 VITAMIN B12 Lab Routine Gastroesophageal reflux disease without esophagitis Confusion Expected: 11/22/2023 (Approximate), Expires: 11/21/2024 25-HYDROXY VITAMIN D Lab Routine Gastroesophageal reflux disease without esophagitis Confusion Expected: 11/22/2023 (Approximate), Expires: 11/21/2024 TSH WITH FREE T4 IF INDICATED Lab Routine Confusion Expected: 11/22/2023 (Approximate), Expires: 11/21/2024 VALPROIC ACID LEVEL Lab Routine Confusion Expected: 11/22/2023 (Approximate), Expires: 11/21/2024 URINALYSIS, REFLEX TO CULTURE (NOT FOR NEUTROPENIC PATIENTS) Lab Routine Confusion Expected: 11/22/2023, Expires: 11/22/2024 CT HEAD/BRAIN WO CONTRAST Medical Imaging Routine Multiple sclerosis (HCC) Fluency disorder associated with underlying disease Expected: 11/22/2023, Expires: 12/20/2024 RPR Lab Routine Fluency disorder associated with underlying disease Expected: 11/22/2023 (Approximate), Expires: 11/21/2024 VASC DUPLEX CAROTID BILAT Medical Imaging Routine ASCVD (arteriosclerotic cardiovascular disease) Confusion Expected: 11/22/2023, Expires: 12/20/2024 Scheduled Procedures Name Priority Associated Diagnoses Date/Ti me ESOPHAGOGASTRODUODENOSCOPY ( EGD), FLEXIBLE, TRANSORAL, DIAGNOSTIC Recall Gastroesophageal reflux disease without esophagitis Scheduled Referrals Name Type Priority Associated Diagnoses Orde r Schedule NEUROLOGY REFERRAL OP Referral Within 30 days (routine) Multiple sclerosis (HCC) Fluency disorder associated with underlying disease Ordered: 11/22/2023 Health Maintenance Due Date Last Done Comments Cologuard 2006 Colonoscopy 2006 Colorectal Cancer Screening 2006 Fecal Occult Blood Test 2006 Sigmoidoscopy 2006 *SPIROMETRY ONCE FOR ASTHMA-ADULT 11/14/2016 DISCUSS TOBACCO CESSATION (REFER TO SMARTSET #1571) 03/16/2017 03/16/2016 (Discussed) Mammogram 03/23/2020 03/23/2019 Depression Screening 11/07/2020 11/07/2019, 03/16/2016 (Discussed) COVID-19 Vaccine ( season) 2023 Influenza Vaccine (FLU shot) (#1) 2023 10/27/2021, 06/28/2019, 07/30/2016, Additional history exists Pneumococcal Vaccine: Pediatrics (0 to 5 Years) and At-Risk Patients (6 to 64 Years) (3 of 3 - PPSV23 or PCV20) 2026 03/30/2018, 01/10/2007 [...] as of this encounter Visit Diagnoses Diagnosis Confusion- Primary Unspecified psychosis Multiple sclerosis (HCC) Multiple sclerosis Gastroesophageal reflux disease without esophagitis Esophageal reflux ASCVD (arteriosclerotic cardiovascular disease) Unspecified cardiovascular disease Moderate persistent asthma without complication Unspecified asthma PTSD (post-traumatic stress disorder) Posttraumatic stress disorder Fluency disorder associated with underlying disease documented in this encounter Care Teams Manager Retail Relationship Specialty Start Date End Date Tatiana Damon DO [address] [place] [address] PCP - General Family Medicine 05/17/18 documented as of this encounter
--- OUTSIDE RECORDS SUMMARY | 2023-11-23 10:03 | External Medical Summary | Summary of Care ---
Author Name Unknown Organization [facility] Address [address] [place] [address] Phone [phone] Care Team Providers Care Rock Star Name Role Phone Tatiana Damon Primary Care Provider [phone] Reason for Referral * Evaluate & Treat - Unlimited Visits (Within 30 days (routine)) - Authorized Specialty Diagnoses / Procedures Referred By Ermelinda velazquez Referred To Contact Neurology Diagnoses Multiple sclerosis (HCC) Fluency disorder associated with underlying disease Deb Pierce PA-C [address] [place] [address] Referral ID Status Reason Start Date Expiration Date Visits Requested Visits Authorized [id number] Authorized Specialty Services Required 11/22/2023 999 999 [...] CT HEAD/BRAIN WO CONTRAST Deb Pierce PA-C [address] [place] [address] Referral ID Status Reason Start Date Expiration Date V isits Requested Visits Authorized [id number] Pending Review 11/22/2023 999 999 Reason for Visit * Reason Comments Medication Problem Pt states that she h as a back pain Encounter Details Date Type Department Care Team (Latest Contact Info) Description 11/22/2023 10:20 AM EST [facility] [address] [facility] [phone] Deb Pierce [facility]-C [address] [facility] [address] Confusion*; Multiple sclerosis (HCC); Gastroesophageal [...] 01/11/2023 Active Vitamin D (Ergocalciferol) 1.25 MG (00632 UT) Oral Capsule (Drisdol)Indications:Vi tamin D deficiency [...] Diagnosed Date Food insecurity 05/04/2021 Overview: Per [facility] Protocol Multiple sclerosis 08/24/2019 History of [...] appt to go to the ER at [facility] She had a ride from a friend [...] Description 04/24/2024 3:20 PM EDT Office Visit [address] [address] Faith Lincoln PA-C [address] [place] [address] [place] [address] Scheduled Orders Name Type Priority Associated Diagnoses [...] 11/14/2016 DISCUSS TOBACCO CESSATION (REFER TO SMARTSET #7501) 03/16/2017 03/16/2016 (Discussed) Mammogram 03/23/2020 03/23/2019 Depression [...] disease documented in this encounter Care Teams Rock Star Relationship Specialty Start Date End Date Tatiana Damon DO [address] [place] [address] PCP - General Family Medicine 05/17/18 documented as of this encounter
--- OUTSIDE RECORDS SUMMARY | 2023-11-23 10:03 | External Medical Summary | Summary of Care ---
Author Name Unknown Organization [facility] Address [address] [place] [address] Phone [phone] Care Team Providers Care Information Specialist Name Role Phone Tatiana Damon Primary Care Provider [phone] Reason for Referral * Evaluate & Treat - Unlimited Visits (Within 30 days (routine)) - Authorized Specialty Diagnoses / Procedures Referred By Ermelinda velazquez Referred To Contact Neurology Diagnoses Multiple sclerosis (HCC) Fluency disorder associated with underlying disease Deb Pierce PA-C [address] [place] [address] Referral ID Status Reason Start Date Expiration Date Visits Requested Visits Authorized [id number] Authorized Specialty Services Required 11/22/2023 999 999 [...] CT HEAD/BRAIN WO CONTRAST Deb Pierce PA-C [address] [place] [address] Referral ID Status Reason Start Date Expiration Date V isits Requested Visits Authorized [id number] Pending Review 11/22/2023 999 999 Reason for Visit * Reason Comments Medication Problem Pt states that she h as a back pain Encounter Details Date Type Department Care Team (Latest Contact Info) Description 11/22/2023 10:20 AM EST [facility] Visit [facility] [address] [facility] [phone] Deb Pierce PA-C [address] [facility] [address] Confusion*; Multiple sclerosis (HCC); Gastroesophageal [...] 01/11/2023 Active Vitamin D (Ergocalciferol) 1.25 MG (12081 UT) Oral Capsule (Drisdol)Indications:Vi tamin D deficiency [...] Diagnosed Date Food insecurity 05/04/2021 Overview: Per [facility] Protocol Multiple sclerosis 08/24/2019 History of [...] appt to go to the ER at [facility] She had a ride from a [...] Description 04/24/2024 3:20 PM EDT Office Visit [address] [address] Faith Lincoln PA-C [address] [place] [address] [place] [phone] Scheduled Orders Name Type Priority Associated Diagnoses [...] 11/14/2016 DISCUSS TOBACCO CESSATION (REFER TO SMARTSET #0821) 03/16/2017 03/16/2016 (Discussed) Mammogram 03/23/2020 03/23/2019 Depression [...] disease documented in this encounter Care Teams Information Specialist Relationship Specialty Start Date End Date Tatiana Damon DO [address] [place] [address] PCP - General Family Medicine 05/17/18 documented as of this encounter
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
[2023-11-23] MEDS: MELATONIN 3 MG TAB PO PRN (20:10)
[2023-11-23 20:51] LABS: Appearance Urine Clear (Clear); Bacteria Urine Automated Negative (Negative); Bilirubin Urine Negative (Negative); Blood Urine Negative (Negative); Color Urine Dark Yellow; Epithelial Cell Urine Auto >30 /lpf (0-5); Glucose Urine UA Negative (Negative); Ketones Urine Trace (Negative); Leukocyte Esterase Urine Negative (Negative); Nitrite Urine Negative (Negative); Protein Urine Trace (Negative); RBC Urine Automated 0-4 /hpf (0-4); Specific Gravity Urine 1.029 (1.000-1.030); Urobilinogen Urine Negative (Negative)
[2023-11-23] MEDS: NICOTINE 7 MG/24 HR TDSY TD SCH (21:52)
[2023-11-24 07:03] LABS: Hematocrit (blood only) 33.3 % (37.0-47.0); Hemoglobin 11.1 g/dl (12.0-16.0); Mean Corpuscular Hemoglobin 30.2 pg (25.0-34.0); Mean Corpuscular Hgb Conc 33.3 g/dL (32.0-36.0); Mean Corpuscular Volume 90.7 fL (80.0-100.0); Mean Platelet Volume 9.6 fL (9.4-12.4); Platelet Count 300 K/uL (130-400); RDW Coefficient of Variation 13.8 % (11.5-14.5); RDW Standard Deviation 46.3 fL (36.4-46.3); Red Blood Count 3.67 M/uL (4.20-5.40); White Blood Count 4.15 K/ul (4.8-10.8)
[2023-11-24 07:13] LABS: BUN Creatinine Ratio 21.7 (10-20); Calcium 8.7 mg/dl (8.6-10.3); Creatinine Clr Calc Pharmacy 79.3 ml/min; Est GFR (African American) 113.2 ml/min; Est GFR (Non-African American) 97.7 ml/min; Potassium 3.4 mmol/L (3.5-5.1)
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
[2023-11-24] MEDS: POTASSIUM CHLORIDE CRTAB 20 MEQ TABCR PO STA (08:10)
[2023-11-24] MEDS: PROMETHAZINE HCL 6.25 MG in SODIUM CHLORIDE 0.9% 50 ML IV PRN (08:33)
[2023-11-24] MEDS: SODIUM CHLORIDE 0.9% 1,000 ML IV SCH (08:33)
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
[2023-11-24] MEDS: hydrOXYzine HCl 25 MG TAB PO PRN (20:07)
[2023-11-24] MEDS: LORazepam 0.5 MG TAB PO PRN (21:55)
[2023-11-24] MEDS: GADOBUTROL 65ML VIAL IV ONE (23:20)
--- NOTE | 2023-11-25 00:21 | Magnetic Resonance Report ---
Exam(s): MRI L SPINE W/WO Contrast IV Amt: 5 cc leo EXAM: MR Lumbar Spine Without and With Intravenous Contrast CLINICAL HISTORY: Reason for exam: ? hx of MS, ams. TECHNIQUE: Magnetic resonance images of the lumbar spine without and with intravenous contrast in multiple planes. CONTRAST: Patient received 5 cc leo of IV contrast COMPARISON: No relevant prior studies available. FINDINGS: No acute fracture. No evidence of infection. Trace anterolisthesis at L5-S1. Bilateral pars defects at L5. The distal cord terminates at L1. Normal appearance of the cauda equina nerve roots. Degenerative disc disease most pronounced at L5-S1. No significant spinal canal stenosis within the lumbar spine. Moderate foraminal stenosis bilaterally at L4-5 and L5-S1. IMPRESSION: No acute abnormality. Electronically signed by: Marco Antonio Garcia MD 11/25/23 00:21 AM
--- NOTE | 2023-11-25 00:24 | Magnetic Resonance Report ---
Exam(s): MRI T SPINE W/WO Contrast IV Amt: 5 CC LANA EXAM: MR Thoracic Spine Without and With Intravenous Contrast CLINICAL HISTORY: Reason for exam: ? hx of MS. TECHNIQUE: Magnetic resonance images of the thoracic spine without and with intravenous contrast in multiple planes. CONTRAST: Patient received 5 CC LANA of IV contrast COMPARISON: No relevant prior studies available. FINDINGS: Vertebrae: There is a remote fracture deformity of the T4 segment. No acute fracture. Discs/spinal canal/neural foramina: No acute findings. No significant disc disease. There is a critical spinal canal stenosis at C4-5 and C5-6. No evidence of thoracic spinal canal stenosis. Spinal cord: Unremarkable. Normal signal. No abnormal enhancement. Soft tissues: Unremarkable. IMPRESSION: No evidence of acute thoracic spine pathology. There is a critical spinal canal stenosis at C4-5 and C5-6. Recommend MRI of the cervical spine to evaluate for myelopathy. Communications: Verify Receipt Electronically signed by: Marcela Cavanaugh MD 11/25/23 00:23 AM
[2023-11-25] MEDS: HYDROmorphone INJ 0.5 MG/0.5 ML SYR IV STA (00:35)
--- NOTE | 2023-11-25 00:45 | Magnetic Resonance Report ---
Exam(s): MRI C SPINE IV Amt: 5 cc leo EXAM: MR Cervical Spine With Intravenous Contrast CLINICAL HISTORY: Reason for exam: ? hx of MS, ams. TECHNIQUE: Magnetic resonance images of the cervical spine with intravenous contrast in multiple planes. CONTRAST: Patient received 5 cc leo of IV contrast COMPARISON: Comparison made to prior CT angiogram of the neck from November 02, 2023. FINDINGS: Vertebrae: There are 7 cervical type vertebral bodies with a mild generalized curve to the left and straightening the proximal cervical lordosis. There is mild grade 1 retrolisthesis of C4 on C5 measuring 2 mm and retrolisthesis of C5 on C6 measuring 3 mm. Otherwise, there is normal vertebral body height and alignment. There is remote fracture deformity of the T4 segment. No acute fracture. Spinal cord: There is flattening the ventral cord at C4-5 and C5-6 with subtly increased cord signal concerning for cord edema. No evidence of abnormal enhancement. No abnormal enhancement. Soft tissues: The cervical flow voids are intact. DISCS/SPINAL CANAL/NEURAL FORAMINA: C2-C3: The intervertebral disc is normal. There is minimal to mild facet arthropathy with minimal synovitis. C3-C4: There is mild disc degeneration with annular disc bulge flattening the ventral thecal sac. There is minimal to mild facet arthropathy with mild synovitis. C4-C5: Advanced disc degeneration with annular disc bulge flattening the ventral cord with increased cord signal concern for cord edema and causing a critical spinal canal stenosis with AP diameter measuring 6.8 mm. There is uncovertebral joint arthropathy with this extending into the neural foramina causing severe bilateral neuroforaminal stenosis with impingement of the bilateral C5 nerve roots. There is mild facet arthropathy with mild synovitis. C5-C6: Advanced disc degeneration with annular disc bulge flattening the ventral cord with subtly increased cord signal concern for cord edema and severe spinal canal stenosis with AP diameter measuring 7.3 mm. There is uncovertebral joint arthropathy causing a severe right and mild left stenosis with impingement of the right C6 nerve root. There is mild facet arthropathy with mild synovitis. C6-C7: The intervertebral disc is normal. There is mild facet arthropathy with mild synovitis. C7-T1: The intervertebral disc is normal. There is moderate facet arthropathy with mild synovitis. IMPRESSION: 1. Advanced disc degeneration at C4-5 and C5-6 with mild disc degeneration at C3-4 with annular disc bulging and flattening the ventral thecal sac and flattening the ventral cord at C4-5 and C5-6 with subtle increased cord signal concerning for cord edema. 2. There is a critical spinal canal stenosis at C4-5 and severe stenosis at C5-6. 3. There are severe bilateral C4-5, and severe right and mild left C5-6 neural foraminal stenosis with impingement of bilateral C5 and right C6 nerve roots. 4. There is minimal to moderate facet arthropathy with minimal to mild synovitis. 5. No evidence of fracture, infection, or tumor. Electronically signed by: Marcela Cavanaugh MD 11/25/23 00:44 AM
[2023-11-25 07:58] LABS: Hematocrit (blood only) 32.3 % (37.0-47.0); Hemoglobin 10.7 g/dl (12.0-16.0); Mean Corpuscular Hemoglobin 30.1 pg (25.0-34.0); Mean Corpuscular Hgb Conc 33.1 g/dL (32.0-36.0); Mean Platelet Volume 9.8 fL (9.4-12.4); Platelet Count 282 K/uL (130-400); RDW Coefficient of Variation 13.9 % (11.5-14.5); RDW Standard Deviation 46.6 fL (36.4-46.3); Red Blood Count 3.55 M/uL (4.20-5.40); White Blood Count 4.64 K/ul (4.8-10.8)
[2023-11-25 08:06] LABS: BUN Creatinine Ratio 24.2 (10-20); Calcium 8.7 mg/dl (8.6-10.3); Creatinine Clr Calc Pharmacy 71.6 ml/min; Est GFR (African American) 109.7 ml/min; Est GFR (Non-African American) 94.7 ml/min; Magnesium 1.8 mg/dl (1.7-2.4); Phosphorus 4.8 mg/dl (2.5-4.9)
[2023-11-25] MEDS: INFLUENZA VIRUS QUADRIVALENT VACCINE (IIV4) 0.5 ML SYR IM ONE (09:51)
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
== END 2023-11-25 12:02 | disposition home or self-care (01) | DRG 885 ==
LOC: ED 11:08 → EDINP 13:11 → SUATTDRO 13:11 → EDINP 11-23 15:19 → 2N 11-23 15:54